=== PATIENT | male | born 1965 | race Two or more races ===

== ENCOUNTER 2024-06-29 21:20 | Emergency (ER) | payer BC, OTHER ==
[~2024-06-29] VITALS: Ht 167.6 cm; Wt 59.1 kg
[2024-06-29 21:23] VITALS: BP 136/89; PULSE 88; RESP 16; TEMP 98; O2SAT 100
[2024-06-29] MEDS: LIDOCAINE 1% 10 ML VIAL ID ONE (23:23)
== END 2024-06-30 00:09 | disposition home or self-care (01) ==
LOC: EMS 21:23
DX: S61.213A Laceration without foreign body of left middle finger without damage to nail, initial encounter (principal); X58.XXXA Exposure to other specified factors, initial encounter; Y93.89 Activity, other specified; Y92.89 Other specified places as the place of occurrence of the external cause; Y99.8 Other external cause status
CPT/HCPCS: 99282; 12001; J3490